=== PATIENT | male | born 1990 | race Caucasian/White ===

== ENCOUNTER → 2020-03-10 10:37 | Outpatient (BNVA) | payer OTHER, SELFPAY | PROVIDERS: PCP Family Medicine; Visit Provider Physician Assistant Medical ==

== ENCOUNTER 2020-03-16 07:27 | Outpatient (REF) | payer OTHER, SELFPAY | END 2020-03-16 07:28 | disposition home or self-care (01) | LOC: HO.LAB 07:27 | PROVIDERS: Visit Provider Internal Medicine | DX: Z20.828 Contact with and (suspected) exposure to other viral communicable diseases (principal) | CPT/HCPCS: C9803; U0003 ==